=== PATIENT | female | born 1940 | race Caucasian/White ===

== ENCOUNTER → 2017-02-24 | Outpatient (CLI) | payer MEDICARE, BC ==
[~2017-02-24] MED LIST: ALBU8.5H3; FLUT1DIS22; LAS20; LEVO100T82; LOSA25TA2; TOLT4CAP; ZOLP10TA
--- NOTE | 2017-02-24 16:20 | RADRPT ---
PROCEDURE: XR Left hip and pelvis. CLINICAL INDICATION: Left hip pain and pelvic pain. TECHNIQUE: 3 views. Frontal pelvis. Frontal and lateral left hip. COMPARISON: 06/02/2013. FINDINGS: There is no fracture or dislocation. Surgical clips are present bilaterally in the pelvis. On the right side there is a total hip arthroplasty which appears satisfactory with no fracture, dis location, or loosening. There are severe degenerative changes of the left hip with joint space narrowing, osteophytes, subar ticular sclerosis, worse than seen previously. Sacroiliac joints are unremarkable. IMPRESSION: 1. Prior bilateral pelvic surgery. 2. Total right hip arthroplasty. 3. Severe degenerative changes of the left hip, slightly worse than seen previously. 4. No other new abnormality. RPTAT: QQ .Victor Manuel Hidalgo MD, MD Date Time Electronically viewed and signed by .Victor Manuel Hidalgo MD, MD on 02/24/2017 16:19 .R/
== END | disposition home or self-care (01) ==
LOC: HKI 14:44
PROVIDERS: ATTEND Orthopaedic Surgery
DX: M25.552 Pain in left hip (principal); M16.12 Unilateral primary osteoarthritis, left hip; Z96.641 Presence of right artificial hip joint
CPT/HCPCS: 73502; G0463

== ENCOUNTER → 2017-03-12 | Outpatient (CLI) | payer MEDICARE, BC | END | disposition home or self-care (01) | LOC: HKI 10:14 | PROVIDERS: ATTEND Orthopaedic Surgery | DX: Z01.818 Encounter for other preprocedural examination (principal); M16.12 Unilateral primary osteoarthritis, left hip; M25.552 Pain in left hip; Z96.641 Presence of right artificial hip joint | CPT/HCPCS: G0463 ==

== ENCOUNTER 2017-03-20 07:20 | Inpatient (IN) | payer MEDICARE, BC ==
[2017-03-12 13:46] VITALS: BMI 37.9
[2017-03-20] VITALS (55 sets, daily range): BP systolic 76–152; BP diastolic 54–92; PULSE 58–84; RESP 14–54; Ht 160 cm; Wt 100.2 kg
[~2017-03-20] VITALS: Ht 160 cm; Wt 100.2 kg
[~2017-03-20 07:20] MED LIST changes: +EPHEDrine SULFATE 50 MG/5 ML SYG ONE; +LIDOCAINE 2% (SDV) 5 ML INJ ONE; +TRANEXAMIC ACID 1,000 MG in SOD CHLORIDE 0.9% 90 ML IV ONE
[2017-03-20] MEDS ORDERED: SYN1 PO (08:03)
[2017-03-20] MEDS ORDERED: AMLO5TAB4 PO (08:04)
[2017-03-20] MEDS ORDERED: FURO-110 PO (08:04)
[2017-03-20] MEDS ORDERED: LOSA100T7 PO (08:04)
[2017-03-20] MEDS ORDERED: ZOLP5TAB PO (08:05)
[2017-03-20] MEDS ORDERED: ROCURONIUM 50 MG INJ ONE (08:53)
[2017-03-20] MEDS ORDERED: GLYCOPYRROLATE 0.4 MG INJ ONE (08:53)
[2017-03-20] MEDS ORDERED: CEFAZOLIN 1 GM INJ ONE (08:53)
[2017-03-20] MEDS ORDERED: PROPOFOL 0 ML ONE ×2 (08:53→08:55)
[2017-03-20] MEDS ORDERED: NEOSTIGMINE 3 MG/3 ML SYRINGE ONE (08:53)
[2017-03-20] MEDS ORDERED: FENTAnyl 50 MCG/ML VIAL ONE (08:54)
[2017-03-20] MEDS ORDERED: ONDANSETRON 4 MG INJ ONE (08:54)
[2017-03-20] MEDS ORDERED: DEXAMETHASONE 4 MG/ML 1 ML INJ ONE (08:54)
[2017-03-20] MEDS ORDERED: MIDAZOLAM 1 MG/ML 2 ML INJ ONE (08:54)
--- NOTE | 2017-03-20 09:58 | HPN ---
Date/Time of Note Date/Time of Note DATE: 03/20/17 TIME: 09:57 Interval H&P Admission Note Pt. seen H&P reviewed: No system changes No change from H&P on 03/06/17 by ABRAHAM Roland MD Mar 20, 2017 09:58
[2017-03-20] MEDS ORDERED: BUPIVACAINE LIPOSOME/PF 266 MG/20 ML VIAL INFIL ONE (10:00)
[2017-03-20] MEDS ORDERED: PREGABALIN 300 MG PO X1 PO ONE (10:00)
[2017-03-20] MEDS ORDERED: CELECOXIB 400 MG PO X1 DOSE PO ONE (10:00)
[2017-03-20] MEDS ORDERED: CEFAZOLIN 2GM/50 ML (PMX) 50 ML X1 BEFORE INCISION IVPB ONE (10:00)
[2017-03-20] MEDS ORDERED: EXPAREL NOTE (BUPIVICAINE LIPOSOMAL) XX SCH (10:00)
[2017-03-20] MEDS ORDERED: PAIN COCKTAIL-CEFUROXIME IRR ONE ×7 (10:00)
[2017-03-20] MEDS ORDERED: TRANEXAMIC ACID 1,000 MG in SOD CHLORIDE 0.9% 100 ML IVPB ONE ×3 (10:00→19:30)
[2017-03-20] MEDS: LACTATED RINGER'S 1,000 ML IV SCH ×4 (10:00→21:00)
[2017-03-20] MEDS ORDERED: oxyCODONE (CR) 10 MG TAB [oxyCONTIN] X1 DOSE PO ONE (10:00)
[2017-03-20] MEDS ORDERED: traMADOL 50 MG TAB X 1 DOSE PO ONE (10:00)
[2017-03-20] MEDS ORDERED: VANCOMYCIN 1 GM INJ ONE (10:18)
[2017-03-20] MEDS ORDERED: POLYMYXIN B 500000 UNIT INJ ONE (10:18)
[2017-03-20] MEDS ORDERED: ONDANSETRON 4 MG INJ IV PRN ×2 (11:30→13:30)
[2017-03-20] MEDS ORDERED: LABETALOL HCL 20MG INJ IV PRN (11:30)
[2017-03-20] MEDS ORDERED: FENTAnyl 50 MCG/ML VIAL IV PRN ×3 (11:30)
[2017-03-20] MEDS ORDERED: MIDAZOLAM 1 MG/ML 2 ML INJ IV PRN (11:30)
[2017-03-20] MEDS ORDERED: TRIMETHOBENZAMIDE 100 MG/ML VIAL IM PRN (11:30)
[2017-03-20] MEDS ORDERED: hydrALAzine 20 MG INJ IV PRN (11:30)
[2017-03-20] MEDS ORDERED: MEPERIDINE 25 MG INJ IV PRN (11:30)
[2017-03-20] MEDS ORDERED: DIPHENHYDRAMINE 50 MG INJ IV PRN (11:30)
[2017-03-20] MEDS ORDERED: HYDROmorphONE (0.2 MG/ML) 10ML SYG IV PRN ×3 (11:30)
[2017-03-20] MEDS ORDERED: EPHEDrine SULFATE 50 MG/5 ML SYG IV PRN (11:30)
[2017-03-20] MEDS ORDERED: BACITRACIN 50000 UNITS INJ IRR ONE (11:40)
[2017-03-20] MEDS: traMADol 50 MG TAB PO SCH ×3 (12:00→23:09)
--- NOTE | 2017-03-20 13:11 | OPR ---
Date/Time of Note Date/Time of Note DATE: 03/20/17 TIME: 13:10 Operative Report Free Text/Dictation Dictation # [id number] Procedure Date: Mar 20, 2017 Preoperative Diagnosis Left Hip OA Postoperative Diagnosis Same Operation Performed Left NARESH Surgeon: ABRAHAM LARA MD anesthesiology physician assistant: BRITTNI TATUM PA-C Anesthesia: general, spinal Anesthesiologist: Sanchez Manzano M.D. Estimated Blood Loss: 250 - 300 ml's Specimens Femoral Head Tubes/Drains Hemovac x 1 Complications: None Pt Condition Post Procedure: stable Disposition: PACU ABRAHAM LARA MD Mar 20, 2017 13:11
--- NOTE | 2017-03-20 13:13 | PN ---
Date/Time of Note Date/Time of Note DATE: 03/20/17 TIME: 13:12 Assessment/Plan Lines/Catheters IV Catheter Type (from Nrsg): Peripheral IV Assessment/Plan Assessment/Plan Stable in PACU, s/p left posterior NARESH -cont abx -pain meds as needed -ASA/SCDs for DVT prophylaxis -posterior hip precautions -monitor drain -check AM labs -d/c lr in AM XR of the left hip is pending at this time Subjective 24 Hr Interval Summary Stable in PACU. Denies pain. Moving all extremities. Exam/Review of Systems Vital Signs Vitals Vital Signs Date Time Temp Pulse Resp B/P Pulse Ox O2 Delivery O2 Flow Rate FiO2 03/20/17 13:08 97.7 03/20/17 09:03 81 18 124/58 98 Room Air Intake and Output 03/19/17 03/19/17 03/20/17 15:00 23:00 07:00 Intake Total 0 ml Balance 0 ml Exam Free Text/Dictation Hemovac: minimal Dressing dry Incision clean, dry, and intact without redness or drainage 5/5 Quadriceps, Tibialis Anterior, EHL, Gastroc, Soleus, Peroneals Normal sensation Palpable DT/PT, CR <2 sec No distal edema BRITTNI TATUM PA-C Mar 20, 2017 13:13
--- NOTE | 2017-03-20 13:25 | OPR ---
DATE OF OPERATION: 03/20/2017 PREOPERATIVE DIAGNOSIS: Left hip osteoarthritis. POSTOPERATIVE DIAGNOSIS: Left hip osteoarthritis. OPERATION PERFORMED: Left total hip arthroplasty. SURGEON: Abraham Rouse MD CONDITIONER TUMBLER: TORI Bonner COMPONENTS USED: DePuy size 50 mm Gription Elrama cup, 50/32 neutral AltrX polyethylene liner, size 5 high offset Menard stem, 32 + 5 ceramic head, one 6.5 screw. ANESTHESIA: Spinal plus general endotracheal intubation, plus periarticular injection. ANESTHESIOLOGIST: Sanchez Manzano MD ESTIMATED BLOOD LOSS: 300 mL. INTRAVENOUS FLUIDS: 2 liters of crystalloid. SPECIMENS: Femoral head. DRAINS: Hemovac x1. COMPLICATIONS: None. DISPOSITION: The patient tolerated procedure well and was taken to the recovery room in stable condition. INDICATIONS: The patient is a 76-year-old woman who has had progressive worsening pain in the left hip with radiographic evidence of severe osteoarthritis. She has failed nonsurgical means of treatment to control her pain including activity modifications, pain medications and ambulatory assist devices. Despite these measures, she has had worsening pain and I felt she would benefit from a total hip arthroplasty through a posterior approach. The risks, benefits, and alternatives of the procedure were explained in detail to the patient. I explained the risks of the surgery to include, but not be limited to, bleeding and possible need for blood transfusion; infections; pain; stiffness; neurovascular injury with possible numbness, weakness, and/or paralysis anywhere from the hip down to the toes; fracture, instability, or dislocation; leg length inequality; wear and/or loosening of the prosthesis and possible need for future revision; blood clots and pulmonary embolism; and anesthetic complications such as heart attack, stroke, GI bleed, pneumonia, and/ or . Ample time was allowed for the patient to ask questions, all of which were addressed and answered. The patient understood the risks involved and wished to proceed. Informed consent was signed prior to the procedure. PROCEDURE: The patient's left hip was initialed with a marking pen in the preoperative area to identify the correct operative site. The patient was brought to the [facility] where a spinal anesthesia was administered. The patient was then anesthetized and intubated. A Riddle catheter was placed. A timeout was performed to confirm that the left side was the correct operative site. The patient was given 1 g of Ancef within one hour prior to the procedure. The patient was turned to the lateral decubitus position with the operative side up. An axillary roll was placed under the chest wall. The patient was secured onto the pegboard, and all bony prominences were well padded. The operative hip and lower extremity were prepped and draped in the usual sterile fashion. A posterolateral incision was made centered over the greater trochanter and carried down through subcutaneous tissue and fat with sharp dissection. The iliotibial band and gluteus vilma muscle fibers were bluntly split. The trochanteric bursa was incised. The piriformis and conjoined tendon were identified and taken down off the posterior aspect of the greater trochanter and tagged with #2 FiberWire. The synovial fluid was normal in color and consistency. The femoral head was dislocated posteriorly. It was denuded of cartilage circumferentially. A femoral neck osteotomy was made and the femur retracted anteriorly. The remnants of the labrum and ligamentum teres were excised. I then reamed the acetabulum to the medial wall, and then went up by 2 mm increments until I got a good bite and was down to bleeding subchondral bone. The Elrama cup was opened and impacted into the acetabulum and sat flush circumferentially, getting a good bite. The trial neutral liner was placed into position. The Aufranc-Dinero guide showed the cup had about 40 to 45 degrees of abduction and 20 degrees of anteversion. Attention was then turned towards the femur. The medial overhanging greater trochanter was removed with a cookie cutter osteotome. The canal was opened, and then the lateralizing reamer was used to take away any remaining overhanging greater trochanter. I then used the tapered reamers to ream the femur, going up in size until I got a good bite. I then broached the femur, maintaining a laterally directed force and keeping the broach anteverted 20 to 25 degrees relative to the tibia pointing toward the ceiling. I increased the broaches by one-size increments until I achieved a solid bite and it sat flush with the neck cut. The trunnion and head were assembled and reduced into the acetabulum. The hip was then taken through range of motion and was quite stable. There was 110 degrees of flexion. At 90 degrees of flexion and neutral abduction, the hip was stable posteriorly to 80 degrees of internal rotation. In the position of sleep, it was stable to 85 degrees of internal rotation. The hip came to full extension, and there was no posterior impingement or instability. The [place] sign showed a combined forward flexion of 45 degrees. Leg lengths were palpated to be equal. Cross-table AP pelvis showed the components to be in good position and leg lengths and offset to be equal. At this point, the trial was dislocated and the trial broach removed. The canal was irrigated and dried. The trial liner was removed. One acetabular screw was placed. An [place] hole eliminator was placed. The real liner was opened, impacted into the acetabulum, and sat flush circumferentially. The canal was irrigated and dried. The real stem was opened, impacted into the femur, and sat flush with the neck cut. The trunnion was irrigated and dried. The real femoral head was impacted onto the trunnion and reduced into the acetabulum. The hip had the same range of motion and stability as with the trial. The posterior capsule and short external rotators were repaired back to the greater trochanter through drill holes with #2 FiberWire. The quadratus femoris was repaired back to the vastus lateralis with interrupted #1 Vicryl in a [id number]-rd-pjaft fashion. The sciatic nerve was inspected and noted to be intact, with no undue tension. The soft tissues were infiltrated with a mixture of 150 mg of 0.5% bupivacaine, 8 mg of Duramorph, 300 mcg of epinephrine , 30 mg of Toradol, 100 mcg of clonidine, 750 mg of cefuroxime and 86 mL of normal saline, followed by an injection of 266 mg of liposomal bupivacaine. A Hemovac drain was placed in the deep portion of the wound and brought out the anterolateral thigh. At this point the hip was irrigated with a mixture of Betadine/saline and then antibiotic saline with pulsatile lavage. The iliotibial band was repaired with interrupted #1 Ethibond in a gyyyzk-ik-wutfg fashion. The gluteus vilma muscle fascia was repaired with a running #1 Vicryl. The deep fat layer was irrigated and closed with 2-0 Stratafix, the subcutaneous layer closed with 3-0 Vicryl, and michael on the skin. Skin edges were sealed with Dermabond. The drain was secured with 3-0 nylon. The sponge and needle counts were correct at the end of the case. The wound was covered with an occlusive dressing. The patient was awakened, extubated, and taken to the recovery room in stable condition. An escrow assistant surgeon was necessary in the integral part of the procedure for positioning of the extremity, preparation of the patient before and after the surgical intervention. Dictated By: ABRAHAM TRINIDAD/MISSY Conf#: [id number] DID#: [id number] MTDD
[2017-03-20] MEDS ORDERED: MAGNESIUM HYDROXIDE 30ML CUP PO PRN (13:30)
[2017-03-20] MEDS ORDERED: NACL 0.9% 3 ML SYG IV SCH (13:30)
[2017-03-20] MEDS ORDERED: HYDROmorphONE 1 MG/ML SYG IV PRN (13:30)
[2017-03-20] MEDS ORDERED: DIPHENHYDRAMINE 25 MG CAP PO PRN (13:30)
[2017-03-20] MEDS ORDERED: ASPIRIN (EC) 325 MG TAB PO ONE (13:30)
[2017-03-20] MEDS ORDERED: NA PHOSPHATE/BIPHOS 133 ML ENEMA PR PRN (13:30)
[2017-03-20] MEDS ORDERED: BISACODYL 10 MG SUPP PR PRN (13:30)
[2017-03-20 13:39] LABS: HEMATOCRIT 36.2 % (37.0-47.0)
[2017-03-20] MEDS ORDERED: ALBUTEROL 18 GM INHALER INH PRN (14:00)
--- NOTE | 2017-03-20 14:03 | CONS ---
DATE OF ADMISSION: 03/20/2017 DATE OF CONSULTATION: 03/20/2017 POSTOPERATIVE MEDICAL CONSULTATION Thank you very much for allowing me to evaluate this 76-year-old female who just underwent total lef t hip arthroplasty. HISTORICAL EVENTS: As you well know, this patient has had progressive disabling pain involving the left hip, and for this elected to proceed with your recommended surgery. In recovery, she is comfor table without cough, wheezing, shortness of breath, nausea, vomiting, abdominal or chest pain. PAST MEDICAL HISTORY: Includes: 1. Asthma. 2. History of edema. 3. Hyperlipidemia. 4. Hypertension. 5. Hypothyroidism. 6. Impaired glucose tolerance. 7. 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 8. Left knee arthroscopic surgery. 9. Hysterectomy and bilateral salpingo-oophorectomy. 10. Right ankle fracture. 11. Negative thallium stress study in 2010 and undergoing cardiology preoperative evaluation by ____. MEDICATIONS PRIOR TO ADMISSION: 1. Ambien 10 mg. 2. Amlodipine 5 mg. 3. Lasix 20 mg per day. 4. Levoxyl 100 mcg per day. 5. Losartan 100 mg per day. 6. Nasonex and ProAir as needed. ALLERGIES: None. SOCIAL HISTORY: She does not smoke. FAMILY HISTORY: Positive for stomach cancer. PHYSICAL EXAMINATION: GENERAL: A comfortable appearing female in no acute distress. VITAL SIGNS: BP 120/80, pulse 70, respirations were 20. She was afebrile. EYES: Extraocular muscles were full. NOSE, MOUTH, AND THROAT: Normal. NECK: Supple. There was no jugular venous distention, thyroid enlargement or adenopathy. Carotids 2+. LUNGS: Clear. HEART: Rhythm regular. ABDOMEN: Nontender. Liver and spleen were not palpable. No tenderness. EXTREMITIES: No pitting edema. Calves nontender. NEUROLOGIC: No lateralizing motor weakness. IMPRESSION: 1. Stable postop left hip. 2. History of hypertension. With continue blood pressure meds and [facility]. 3. Hypothyroidism, to continue thyroid replacement. 4. We will evaluate her daily for signs and symptoms of thromboembolic disease despite appropriate deep vein thrombosis prophylaxis. Dictated By: DARRELL RUSS/MISSY Conf#: [id number] DID#: [id number]
[2017-03-20 14:06] LABS: CALCIUM 8.9 mg/dl (8.4-10.2); CREATININE 0.92 mg/dl (0.44-1.00); POTASSIUM 3.4 mmol/L (3.5-5.1)
[2017-03-20] MEDS ORDERED: ETOMIDATE 20 MG INJ ONE (14:17)
[2017-03-20] MEDS ORDERED: PROPOFOL 100 ML ONE (14:17)
--- NOTE | 2017-03-20 14:46 | RADRPT ---
PROCEDURE: Intraoperative imaging of the left hip with fluoroscopy. CLINICAL INDICATION: Left hip pain. Intraoperative. TECHNIQUE: Four images of the left hip were obtained in the operating room with an image intensifi er. No radiologist was in attendance. COMPARISON: Right hip radiographs dated 06/02/2013. Left hip radiographs dated 02/24/2017. FINDINGS: Images demonstrate placement of a total left hip arthroplasty. There is also a right total hip arthr oplasty which was present on 06/02/2013. IMPRESSION: 1. Intraoperative imaging of the left hip. RPTAT: QQ .Victor Manuel Hidalgo MD, MD Date Time Electronically viewed and signed by .Victor Manuel Hidalgo MD, on 03/20/2017 14:46 .R/
[2017-03-20] MEDS ORDERED: BACITRACIN 50000 UNITS INJ ONE (14:55)
--- NOTE | 2017-03-20 15:27 | RADRPT ---
PROCEDURE: XR Pelvis. CLINICAL INDICATION: Postop TECHNIQUE: Single AP view of the pelvis. COMPARISON: No prior studies are available for comparison. FINDINGS: Patient is status post total bilateral hip arthroplasty. Hardware appears intact and alignment is g rossly anatomic. The sacroiliac joints are partially visualized but within normal limits. The sacr um itself is suboptimally visualized due to overlying bowel gas. Postoperative changes including sub cutaneous gas, the drain, and skin michael are seen overlying the left hip. IMPRESSION: 1. Total bilateral hip arthroplasties with intact hardware in anatomic alignment. 2. Postoperative changes overlying the left hip. RPTAT: KK .Paramjit Smith MD, MD Date Time Electronically viewed and signed by .Paramjit Smith MD, on 03/20/2017 15:27 .B/
--- NOTE | 2017-03-20 15:28 | RADRPT ---
PROCEDURE: XR Hip. CLINICAL INDICATION: Postop TECHNIQUE: Single view of the left hip was performed. COMPARISON: None. FINDINGS: The patient is status post total left hip arthroplasty. Alignment is anatomic. There is no evidence of hardware failure or fracture. No erosions are identified. Postoperative changes including subc utaneous gas, skin michael, and a drain are in place.. IMPRESSION: 1. Total left hip arthroplasty in anatomic alignment. RPTAT: KK .Paramjit Smith MD, Date Time Electronically viewed and signed by .Paramjit Smith MD, on 03/20/2017 15:28 .B/
[2017-03-20] MEDS: PANTOPRAZOLE (EC) 40 MG TAB PO SCH (18:00)
[2017-03-20] MEDS: CEFAZOLIN 2 GM/50 ML (PMX) 50 ML IVPB SCH ×2 (19:03→20:38)
[2017-03-20] MEDS: PREGABALIN 50 MG CAP PO SCH (20:59)
[2017-03-20] MEDS: DOCUSATE SODIUM 100 MG CAP PO SCH (20:59)
[2017-03-21] MEDS: CEFAZOLIN 2 GM/50 ML (PMX) 50 ML IVPB SCH ×2 (03:10→11:43)
[2017-03-21] MEDS: LACTATED RINGER'S 1,000 ML IV SCH ×3 (03:10→21:01)
[2017-03-21 05:30] LABS: POTASSIUM 4.3 mmol/L (3.5-5.1)
[2017-03-21 05:33] LABS: CREATININE 0.85 mg/dl (0.44-1.00)
[2017-03-21 06:09] VITALS: BP 112/61; PULSE 72; RESP 18
[2017-03-21 06:14] LABS: ADD UMIC NO; URINE BILIRUBIN (Dip) NEGATIVE (NEGATIVE); URINE BLOOD (Dip) NEGATIVE (NEGATIVE); URINE COLOR LT. YELLOW (YELLOW); URINE GLUCOSE (Dip) NEGATIVE (NEGATIVE); URINE KETONES (Dip) NEGATIVE (NEGATIVE); URINE LEUKOCYTE ESTERASE (Dip) NEGATIVE (NEGATIVE); URINE NITRITE (Dip) NEGATIVE (NEGATIVE); URINE TOTAL PROTEIN (Dip) NEGATIVE (NEGATIVE); URINE UROBILINOGEN (Dip) 0.2 E.U./dL (0.1-1.0)
[2017-03-21] MEDS: traMADol 50 MG TAB PO SCH ×4 (06:29→23:32)
[2017-03-21] MEDS: LEVOTHYROXINE 100 MCG TAB PO SCH (06:29)
[2017-03-21] MEDS: PANTOPRAZOLE (EC) 40 MG TAB PO SCH ×2 (06:30→18:12)
[2017-03-21 07:00] VITALS: BP 92/54; RESP 18
[2017-03-21 08:30] VITALS: BP 119/69; RESP 18
[2017-03-21] MEDS: CELECOXIB 200 MG CAP PO SCH (08:46)
[2017-03-21] MEDS: AMLODIPINE 5 MG TAB PO SCH (08:46)
[2017-03-21] MEDS: DOCUSATE SODIUM 100 MG CAP PO SCH ×2 (08:46→20:17)
[2017-03-21] MEDS: ASPIRIN (EC) 325 MG TAB PO SCH ×2 (08:47→20:17)
[2017-03-21] MEDS: PREGABALIN 50 MG CAP PO SCH ×2 (08:47→20:17)
[2017-03-21] MEDS: HYDROCODONE/APAP (5/325) TAB PO PRN ×3 (08:47→20:16)
--- NOTE | 2017-03-21 08:50 | PN ---
Date/Time of Note Date/Time of Note DATE: 03/21/17 TIME: 08:49 Assessment/Plan Lines/Catheters IV Catheter Type (from Nrsg): Peripheral IV Riddle in Place (from Nrsg): Yes Assessment/Plan Assessment/Plan Stable POD #1, s/p left posterior NARESH -d/c abx -pain meds prn -ASA/SCDs for DVT prophylaxis -OOB with PT -continue posterior hip precautions -drain removed -check AM labs -d/c planning. Will plan to go home upon discharge Subjective 24 Hr Interval Summary No acute overnight events. Denies any significant pain. Did not start PT yesterday. VSS, afebrile. Will plan to go home upon discharge. Exam/Review of Systems Vital Signs Vitals Vital Signs Date Time Temp Pulse Resp B/P Pulse Ox O2 Delivery O2 Flow Rate FiO2 03/21/17 08:30 97.6 80 18 119/69 98 03/21/17 06:09 Nasal Cannula 2.0 Intake and Output 03/20/17 03/20/17 03/21/17 15:00 23:00 07:00 Intake Total 5100 ml 1700 ml Output Total 1020 ml 1840 ml Balance 4080 ml -140 ml Exam Free Text/Dictation Hemovac: 60cc Dressing dry Incision clean, dry, and intact without redness or drainage 5/5 Quadriceps, Tibialis Anterior, EHL, Gastroc, Soleus, Peroneals Normal sensation Palpable DT/PT, CR <2 sec No distal edema Results Result Diagram: 03/21/17 0425 03/21/17 0425 BRITTNI TATUM PA-C Mar 21, 2017 08:50
[2017-03-21] MEDS: LOSARTAN 50 MG TAB PO SCH (09:00)
[2017-03-21] MEDS ORDERED: FUROSEMIDE 20 MG TAB PO SCH (09:00)
--- NOTE | 2017-03-21 11:21 | CONS ---
Date/Time of Note Date/Time of Note DATE: 03/21/17 TIME: 11:19 Assessment/Plan Assessment/Plan Additional Assessment/Plan 1. Stable postop left hip. 2. History of hypertension, now controlled 3. Hypothyroidism,on replacement Consultation Date/Type/Reason Admit Date/Time Mar 20, 2017 at 07:20 Initial Consult Date Detailed Summary Respiratory: No shortness of breath Cardiovascular: No chest pain, No lightheadedness, No palpitations Gastrointestinal: no complaints Genitourinary: no complaints Musculoskeletal: bone/joint pain (mild left hip pain) Exam/Review of Systems Vital Signs Vitals Vital Signs Date Time Temp Pulse Resp B/P Pulse Ox O2 Delivery O2 Flow Rate FiO2 03/21/17 08:30 97.6 80 18 119/69 98 03/21/17 06:09 Nasal Cannula 2.0 Intake and Output 03/20/17 03/20/17 03/21/17 15:00 23:00 07:00 Intake Total 5100 ml 1700 ml Output Total 1020 ml 1840 ml Balance 4080 ml -140 ml Exam Neck: No jvd Respiratory: clear to auscultation Cardiovascular: regular rate and rhythm Gastrointestinal: soft Extremities: No edema (and no calf tend) Results Result Diagram: 03/21/17 0425 03/21/17 0425 Results 24 hrs Laboratory Tests Test 03/20/17 13:30 03/21/17 04:10 03/21/17 04:25 Hemoglobin 12.0 11.0 L Hematocrit 36.2 L 33.0 L Sodium Level 140 138 Potassium Level 3.4 L 4.3 Chloride Level 107 106 Carbon Dioxide Level 22 27 Anion Gap 14 9 # Blood Urea Nitrogen 13 11 Creatinine 0.92 0.85 Glucose Level 174 122 # Calcium Level 8.9 9.0 Urine Color LT. YELLOW Urine Clarity CLEAR Urine pH 5.5 Urine Specific [place] <=1.005 L Urine Ketones NEGATIVE Urine Nitrite NEGATIVE Urine Bilirubin NEGATIVE Urine Urobilinogen 0.2 E.U./dL Urine Leukocyte Esterase NEGATIVE Urine Hemoglobin NEGATIVE Urine Glucose NEGATIVE Urine Total Protein NEGATIVE Medications Medications Current Medications Amlodipine Besylate (Norvasc) 5 mg DAILY PO Last administered on 03/21/17t 08: 46; Admin Dose 5 MG; Start 03/21/17 at 09:00 Losartan Potassium 100 mg 100 mg DAILY PO ; Start 03/21/17 at 09:00 Lactated Ringer's (Lr) 1,000 ml @ 125 mls/hr Q8H IV Last administered on 03:10; Admin Dose 125 MLS/HR; Start 03/20/17 at 13:01 Celecoxib (Celebrex) 200 mg DAILY PO Last administered on 03/21/17 08:46; Admin Dose 200 MG; Start 03/21/17 at 09:00 Tramadol HCl (Ultram) 50 mg Q6 PO Last administered on 03/21/17 06:29; Admin Dose 50 MG; Start 03/20/17 at 12:00; Stop 03/23/17 at 11:59 Acetaminophen/ Hydrocodone Bitart ([place] (5/325)) 1 tab Q4H PRN PO PAIN LEVEL 1 -3 Last administered on 03/21/17 08:47; Admin Dose 1 TAB; Start 03/20/17 at 13: 30 Acetaminophen/ Hydrocodone Bitart ([place] (5/325)) 2 tab Q4H PRN PO PAIN LEVEL 4 -7; Start 03/20/17 at 13:30 Hydromorphone HCl (Dilaudid) 1 mg Q3H PRN IV PAIN LEVEL 8-10; Start 03/20/17 at 13:30 Ondansetron HCl (Zofran Inj) 4 mg Q6H PRN IV NAUSEA AND/OR VOMITING Last administered on 03/20/17 18:54; Admin Dose 4 MG; Start 03/20/17 at 13:30 Bisacodyl (Dulcolax Supp) 10 mg Q12H PRN DE CONSTIPATION; Start 03/20/17 at 13: 30 Magnesium Hydroxide (Milk Of Mag) 30 ml BID PRN PO CONSTIPATION; Start at 13:30 Sodium Biphosphate/ Sodium Phosphate (Fleet Enema) 133 ml DAILY PRN DE CONSTIPATION; Start 03/20/17 at 13:30 Docusate Sodium (Colace) 100 mg BID PO Last administered on 03/21/17 08:46; Admin Dose 100 MG; Start 03/20/17 at 21:00 Diphenhydramine HCl (Benadryl) 25 mg Q6H PRN PO PRURITUS; Start 03/20/17 at 13: 30 Aspirin (Ecotrin) 325 mg BID PO Last administered on 03/21/17 08:47; Admin Dose 325 MG; Start 03/21/17 at 09:00 Pantoprazole (Protonix Tab) 40 mg BID@06,18 PO Last administered on 03/21/17 06:30; Admin Dose 40 MG; Start 03/20/17 at 18:00 Pregabalin 50 mg 50 mg BID PO Last administered on 03/21/17 08:47; Admin Dose 50 MG; Start 03/20/17 at 21:00 Cefazolin Sodium/ Dextrose (Ancef 2 Gm/50 ml (Pmx)) 50 ml @ 100 mls/hr Q8H IVPB Last administered on 03/21/17 03:10; Admin Dose 100 MLS/HR; Start at 03:00; Stop 03/21/17 at 11:29 DARRELL WEAVER MD Mar 21, 2017 11:20
--- NOTE | 2017-03-21 13:12 | PDOCDIS ---
Discharge Instructions DIAGNOSIS Discharge Diagnosis: s/p left NARESH CONDITION Patient Condition: Good HOME CARE INSTRUCTIONS: Diet Instructions: Regular ACTIVITY: Activity Restrictions: Slowly Increase Activity Rest between Activity Avoid heavy lifting Do not operate Machinery Do not operate Power Tool Avoid Heavy Housework Keep Limb Elevated Bathing Restrictions: Shower FOLLOW UP/APPOINTMENTS Appointments follow up in the office on 03/31/17 OTHER ORDERS: Other Orders: S/P Posterior NARESH Physical Therapy: Three times per week at home x 2 weeks Daily in Rehab/SNF WB STATUS: WBAT Strengthening exercises for both upper and un-operated lower extremities. 1. Gait training with front wheeled walker 2. Wide base gait, no pivot turns. 3. Abductor strengthening. 4. Quadriceps and hamstring strengthening. 5. May switch to cane in contra lateral hand 6 weeks after surgery. 6. Physical Therapy can open case if nursing is not available. 7. Ice Packs while at rest to surgical wound for 20 minutes, 3 times/day. 8. Patient requires mobile SCDs to reduce risk of developing DVT following NARESH. Patient will use the mobile SCDs for 30 days postoperatively. Hip Precautions: no flexion beyond 90 degrees, no adduction, no internal rotation. Bathing assistance by home health aide twice weekly if Medicare patient. Occupational Therapy: Evaluation for assistive devices and ADL training. Wound Care: Keep incision dry & covered with Tegaderm until first visit with Dr. Rouse Anticoagulation Orders: Enteric Coated Aspirin 325 mg po bid x 6 weeks from date of surgery Follow-up:Call for an appointment with Dr. Rouse in 1 week after discharged from hospital at DME Orders: ERNIE, 3-in-1 Commode, Mobile SCDs BRITTNI TATUM PA-C Mar 21, 2017 13:12
[2017-03-21] MEDS ORDERED: TRAM50TA2 PO (13:13)
[2017-03-21] MEDS ORDERED: PANT40TA4 PO (13:13)
[2017-03-21] MEDS ORDERED: HYDR-3498 PO (13:13)
[2017-03-21] MEDS ORDERED: ASPI325T32 PO (13:13)
[2017-03-21 16:28] VITALS: BP 105/54; PULSE 65; RESP 16
[2017-03-21 20:34] VITALS: BP 109/53; RESP 18
[2017-03-22] MEDS: LACTATED RINGER'S 1,000 ML IV SCH ×3 (05:01→21:01)
[2017-03-22] MEDS: PANTOPRAZOLE (EC) 40 MG TAB PO SCH ×2 (05:45→17:44)
[2017-03-22] MEDS: LEVOTHYROXINE 100 MCG TAB PO SCH (05:46)
[2017-03-22] MEDS: traMADol 50 MG TAB PO SCH ×3 (05:46→17:44)
[2017-03-22 06:33] LABS: HEMATOCRIT 32.2 % (37.0-47.0); HEMOGLOBIN 10.1 g/dl (12.0-16.0)
[2017-03-22 07:00] VITALS: BP 105/55; RESP 18
[2017-03-22 07:03] LABS: POTASSIUM 3.8 mmol/L (3.5-5.1)
[2017-03-22 07:06] LABS: CREATININE 0.94 mg/dl (0.44-1.00)
[2017-03-22 07:07] LABS: CALCIUM 8.6 mg/dl (8.4-10.2)
--- NOTE | 2017-03-22 09:07 | PN ---
Date/Time of Note Date/Time of Note DATE: 03/22/17 TIME: 09:05 Assessment/Plan Lines/Catheters IV Catheter Type (from Nrsg): Peripheral IV Riddle in Place (from Nrsg): Yes Assessment/Plan Assessment/Plan Stable POD #2, s/p left posterior NARESH -pain meds as needed -ASA/SCDs -OOB with PT -posterior hip precautions -check AM labs -dressing changed -will tentatively plan to discharge home tomorrow Subjective 24 Hr Interval Summary No acute overnight events. Denies significant pain. Progressing with PT but states having difficulty with walking. VSS, afebrile. Tentative plan is to go home tomorrow. Exam/Review of Systems Vital Signs Vitals Vital Signs Date Time Temp Pulse Resp B/P Pulse Ox O2 Delivery O2 Flow Rate FiO2 03/22/17 07:00 97.9 63 18 105/55 98 03/21/17 16:28 Room Air 03/21/17 08:00 2.0 Intake and Output 03/21/17 03/21/17 03/22/17 15:00 23:00 07:00 Intake Total 900 ml 500 ml Output Total 1300 ml Balance -400 ml 500 ml Exam Free Text/Dictation Dressing dry Incision clean, dry, and intact without redness or drainage 5/5 Quadriceps, Tibialis Anterior, EHL, Gastroc, Soleus, Peroneals Normal sensation Palpable DT/PT, CR <2 sec No distal edema Results Result Diagram: 03/22/17 0449 03/22/17 0449 BRITTNI TATUM PA-C Mar 22, 2017 09:07
[2017-03-22] MEDS: CELECOXIB 200 MG CAP PO SCH (09:19)
[2017-03-22] MEDS: DOCUSATE SODIUM 100 MG CAP PO SCH ×2 (09:19→20:40)
[2017-03-22] MEDS: ASPIRIN (EC) 325 MG TAB PO SCH ×2 (09:19→20:40)
[2017-03-22] MEDS: PREGABALIN 50 MG CAP PO SCH ×2 (09:19→20:40)
[2017-03-22] MEDS: AMLODIPINE 5 MG TAB PO SCH (09:19)
[2017-03-22] MEDS: LOSARTAN 50 MG TAB PO SCH (09:20)
[2017-03-22 09:23] VITALS: BP 124/57; PULSE 58; RESP 18
--- NOTE | 2017-03-22 11:48 | CONS ---
Date/Time of Note Date/Time of Note DATE: 03/22/17 TIME: 11:47 Assessment/Plan Assessment/Plan Additional Assessment/Plan Stable post op course Hgb down trending over the past few days, but asymptomatic and VS stable. Likely post op blood loss. Monitor for 1 more day Agree with discharge home tomorrow. Consultation Date/Type/Reason Admit Date/Time Mar 20, 2017 at 07:20 Initial Consult Date 24 HR Interval Summary Free Text/Dictation Feeling well in bed. has pain with ambulation, taking norco and asking for prescription on discharge. Otherwise no complaints. Not feeling dizzy or lightheaded. Exam/Review of Systems Vital Signs Vitals Vital Signs Date Time Temp Pulse Resp B/P Pulse Ox O2 Delivery O2 Flow Rate FiO2 03/22/17 09:23 58 18 124/57 97 Room Air 03/22/17 07:00 97.9 03/21/17 08:00 2.0 Intake and Output 03/21/17 03/21/17 03/22/17 15:00 23:00 07:00 Intake Total 900 ml 500 ml Output Total 1300 ml Balance -400 ml 500 ml Exam Constitutional: alert, oriented, well developed Psych: nl mood/affect, no complaints Respiratory: clear to auscultation, normal air movement Cardiovascular: nl pulses, regular rate and rhythm Results Result Diagram: 03/22/179 03/22/179 Results 24 hrs Laboratory Tests Test 03/22/17 04:49 Hemoglobin 10.1 L Hematocrit 32.2 L Sodium Level 136 Potassium Level 3.8 Chloride Level 101 Carbon Dioxide Level 27 Anion Gap 12 Blood Urea Nitrogen 15 Creatinine 0.94 Glucose Level 99 Calcium Level 8.6 Medications Medications Current Medications Amlodipine Besylate (Norvasc) 5 mg DAILY PO Last administered on 03/22/17 09: 19; Admin Dose 5 MG; Start 03/21/17 at 09:00 Losartan Potassium 100 mg 100 mg DAILY PO Last administered on 03/22/17 09:20 ; Admin Dose 100 MG; Start 03/21/17 at 09:00 Lactated Ringer's (Lr) 1,000 ml @ 125 mls/hr Q8H IV Last administered on 03:10; Admin Dose 125 MLS/HR; Start 03/20/17 at 13:01 Celecoxib (Celebrex) 200 mg DAILY PO Last administered on 03/22/17 09:19; Admin Dose 200 MG; Start 03/21/17 at 09:00 Tramadol HCl (Ultram) 50 mg Q6 PO Last administered on 03/22/17 05:46; Admin Dose 50 MG; Start 03/20/17 at 12:00; Stop 03/23/17 at 11:59 Acetaminophen/ Hydrocodone Bitart ([place] (5/325)) 1 tab Q4H PRN PO PAIN LEVEL 1 -3 Last administered on 03/21/17 14:10; Admin Dose 1 TAB; Start 03/20/17 at 13: 30 Acetaminophen/ Hydrocodone Bitart ([place] (5/325)) 2 tab Q4H PRN PO PAIN LEVEL 4 -7 Last administered on 03/21/17 20:16; Admin Dose 2 TAB; Start 03/20/17 at 13: 30 Hydromorphone HCl (Dilaudid) 1 mg Q3H PRN IV PAIN LEVEL 8-10; Start 03/20/17 at 13:30 Ondansetron HCl (Zofran Inj) 4 mg Q6H PRN IV NAUSEA AND/OR VOMITING Last administered on 03/20/17 18:54; Admin Dose 4 MG; Start 03/20/17 at 13:30 Bisacodyl (Dulcolax Supp) 10 mg Q12H PRN [place] CONSTIPATION; Start 03/20/17 at 13: 30 Magnesium Hydroxide (Milk Of Mag) 30 ml BID PRN PO CONSTIPATION; Start at 13:30 Sodium Biphosphate/ Sodium Phosphate (Fleet Enema) 133 ml DAILY PRN [place] CONSTIPATION; Start 03/20/17 at 13:30 Docusate Sodium (Colace) 100 mg BID PO Last administered on 03/22/17 09:19; Admin Dose 100 MG; Start 03/20/17 at 21:00 Diphenhydramine HCl (Benadryl) 25 mg Q6H PRN PO PRURITUS; Start 03/20/17 at 13: 30 Aspirin (Ecotrin) 325 mg BID PO Last administered on 03/22/17 09:19; Admin Dose 325 MG; Start 03/21/17 at 09:00 Pantoprazole (Protonix Tab) 40 mg BID@18 PO Last administered on 03/22/17 05:45; Admin Dose 40 MG; Start 03/20/17 at 18:00 Pregabalin (Lyrica) 50 mg BID PO Last administered on 03/22/17 09:19; Admin Dose 50 MG; Start 03/20/17 at 21:00 BRODY GOMEZ MD Mar 22, 2017 11:48
[2017-03-22 19:30] VITALS: BP 137/64; RESP 18
[2017-03-22] MEDS: HYDROCODONE/APAP (5/325) TAB PO PRN (21:17)
[2017-03-23] MEDS: LACTATED RINGER'S 1,000 ML IV SCH ×2 (00:29→12:10)
[2017-03-23 05:59] LABS: HEMATOCRIT 33.2 % (37.0-47.0); HEMOGLOBIN 10.8 g/dl (12.0-16.0)
[2017-03-23] MEDS: PANTOPRAZOLE (EC) 40 MG TAB PO SCH (06:04)
[2017-03-23] MEDS: LEVOTHYROXINE 100 MCG TAB PO SCH (06:04)
[2017-03-23] MEDS: traMADol 50 MG TAB PO SCH ×2 (06:04)
[2017-03-23 06:17] LABS: CREATININE 0.85 mg/dl (0.44-1.00)
[2017-03-23 06:18] LABS: CALCIUM 8.6 mg/dl (8.4-10.2)
[2017-03-23 08:08] VITALS: BP 114/56; RESP 16
--- NOTE | 2017-03-23 08:21 | PN ---
Date/Time of Note Date/Time of Note DATE: 03/23/17 TIME: 08:19 Assessment/Plan Lines/Catheters IV Catheter Type (from Nrsg): Peripheral IV Riddle in Place (from Nrsg): No Assessment/Plan Assessment/Plan Stable POD #3, s/p left NARESH -pain meds as needed -ASA/SCDs -OOB with PT -posterior hip precautions -dressing changed -d/c home today -follow up in the office in 1 week Subjective 24 Hr Interval Summary No acute overnight events. Denies significant pain. Progressing with PT. Slept much better last night now that she was in a private room. VSS, afebrile. Will plan to go home today. Exam/Review of Systems Vital Signs Vitals Vital Signs Date Time Temp Pulse Resp B/P Pulse Ox O2 Delivery O2 Flow Rate FiO2 03/23/17 08:08 97.2 73 16 114/56 96 03/22/17 09:23 Room Air 03/21/17 08:00 2.0 Intake and Output 03/22/17 03/22/17 03/23/17 15:00 23:00 07:00 Intake Total 1150 ml Output Total 1100 ml Balance 50 ml Exam Free Text/Dictation Dressing dry Incision clean, dry, and intact without redness or drainage 5/5 Quadriceps, Tibialis Anterior, EHL, Gastroc, Soleus, Peroneals Normal sensation Palpable DT/PT, CR <2 sec No distal edema Results Result Diagram: 03/23/170 03/23/17 0450 BRITTNI TATUM PA-C Mar 23, 2017 08:21
[2017-03-23] MEDS: LOSARTAN 50 MG TAB PO SCH (08:35)
[2017-03-23] MEDS: AMLODIPINE 5 MG TAB PO SCH (08:36)
[2017-03-23] MEDS: DOCUSATE SODIUM 100 MG CAP PO SCH (08:37)
[2017-03-23] MEDS: CELECOXIB 200 MG CAP PO SCH (08:37)
[2017-03-23] MEDS: ASPIRIN (EC) 325 MG TAB PO SCH (08:37)
[2017-03-23] MEDS: PREGABALIN 50 MG CAP PO SCH (08:37)
[2017-03-23] MEDS: HYDROCODONE/APAP (5/325) TAB PO PRN (13:43)
--- NOTE | 2017-03-23 18:14 | DS ---
DATE OF ADMISSION: 03/20/2017 DATE OF DISCHARGE: 03/23/2017 CONDITION ON DISCHARGE: Stable. ADMITTING DIAGNOSIS: Left hip osteoarthritis. DISCHARGE DIAGNOSIS: Status post left posterior total hip arthroplasty. PROCEDURE PERFORMED: Left posterior total hip arthroplasty. HOSPITAL COURSE: This is a 76-year-old female who was seen in the clinic complaining of left hip pain. She had previously undergone a right NARESH and x- rays demonstrated advanced osteoarthritis of the left hip. It was thought that point she would benefit from a left posterior total hip arthroplasty. On 2016, the patient was admitted and taken to the operating room where she underwent a left posterior total hip arthroplasty. There were no intraoperative complications. The patient tolerated the procedure well. She was taken to the recovery room in stable condition. Pain was well controlled with oral pain medication. She was started on aspirin and SCDs for DVT prophylaxis. She remained hemodynamically stable and neurovascularly intact throughout her hospital stay. She began physical therapy on postoperative day 1 and was deemed stable for discharge on postoperative day 3. Prior to discharge, the incision was inspected and noted to be clean, dry, and intact. Dressing changes were done prior to the patient going home. LABORATORY ANALYSIS: Hemoglobin 10.8, hematocrit 32.2. Chemistry panel was within normal limits. DISCHARGE MEDICATIONS: 1. [place] 5/325 mg. 2. Tramadol 50 mg. 3. Protonix 40 mg. 4. Aspirin 325 mg. 5. Additionally, the patient should resume all her normal home medications. DISCHARGE INSTRUCTIONS: The patient will be discharged home in stable condition. She is to resume a normal diet. Her weightbearing status is as tolerated on the left lower extremity. She will begin physical therapy with home health. She will be discharged home with the medications noted above and is to resume all normal home medications. The patient is to call the office or go to the emergency room for any concerns including increased redness, swelling , drainage, fever, or any concerns regarding the operation or site of incision. FOLLOWUP: The patient will need to follow up in the office on 03/31/2017. Dictated By: BRITTNI VALLE for ABRAHAM VARGAS/NTS Conf#: [id number] DID#: [id number] CC: ABRAHAM LARA MD;*EndCC* MTDD
== END 2017-03-23 15:30 | disposition home health service (06) | DRG 470 ==
LOC: REC 07:20 → MS1 17:20
PROVIDERS: ADMIT Orthopaedic Surgery; ATTEND Orthopaedic Surgery
PROC: 0SRB04Z Replacement of Left Hip Joint with Ceramic on Polyethylene Synthetic Substitute, Open Approach (ICD-10-PCS; principal; 2017-03-20 10:00)
DX: M16.12 Unilateral primary osteoarthritis, left hip (principal); I10 Essential (primary) hypertension; E03.9 Hypothyroidism, unspecified; E78.5 Hyperlipidemia, unspecified; Z96.652 Presence of left artificial knee joint
CPT/HCPCS: 72170; 73500; 73530; 80048; 81003; 85014; 85018; 86850; 86900; 86901; 86920; 87081; 87086; 88304; 88311; 97110; 97116; 97162; 97530; C1713; C1776; C9290; J0690; J1100; J2175; J2250; J2405; J2710; J3010; J3370; J7120

== ENCOUNTER → 2017-03-31 | Outpatient (CLI) | payer MEDICARE, BC ==
[~2017-03-31] MED LIST changes: -ALBU8.5H3; +AMLO5TAB4 PO; +ASPI325T32 PO; -EPHEDrine SULFATE 50 MG/5 ML SYG ONE; -FLUT1DIS22; +FURO-110 PO; +HYDR-3498 PO; -LAS20; -LEVO100T82; -LIDOCAINE 2% (SDV) 5 ML INJ ONE; +LOSA100T7 PO; -LOSA25TA2; +PANT40TA4 PO; +SYN1 PO; -TOLT4CAP; +TRAM50TA2 PO; -TRANEXAMIC ACID 1,000 MG in SOD CHLORIDE 0.9% 90 ML IV ONE; -ZOLP10TA; +ZOLP5TAB PO
--- NOTE | 2017-03-31 17:43 | RADRPT ---
PROCEDURE: XR Left Hip and pelvis. CLINICAL INDICATION: Left hip pain. Pelvic pain. TECHNIQUE: Two views. Frontal pelvis and frontal left hip. COMPARISON: 02/24/2017. 03/20/2017. FINDINGS: There are bilateral total hip arthroplasties which appears satisfactory. There is no fracture, disl ocation, or loosening. There is no lytic or blastic lesion. Left lateral skin michael are once again noted. Left surgical drain has been removed. Surgical cli ps are present in the pelvis. There are degenerative changes of the lower lumbar spine. IMPRESSION: 1. Satisfactory postoperative appearance of both hips. RPTAT: QQ .Victor Manuel Hidalgo MD, MD Date Time Electronically viewed and signed by .Victor Manuel Hidalgo MD, MD on 03/31/2017 17:43 .R/
--- NOTE | 2017-04-01 05:32 | HKNOTE ---
DATE OF SERVICE: 03/31/2017 INTERVAL HISTORY: The patient presents today for her first postoperative evaluation. She is 10 days status post left posterior total hip arthroplasty. She is doing well overall. She is ambulating with a front-wheeled walker. She denies any significant pain. She denies any fevers or chills. She is taking aspirin twice daily for DVT prophylaxis. She is pleased with the outcome of the surgery thus far. She presents today for her first postoperative evaluation. PHYSICAL EXAMINATION: GENERAL: On exam today, she is alert and oriented x4 and in no acute distress. She is ambulating with a front-wheel walker. EXTREMITIES: Exam of the incision demonstrates it to be clean, dry, and intact. Flomot are in place. She has no pain with passive range of motion of the left hip. There is no significant ecchymosis or soft tissue swelling noted. Homans sign is negative. Compartments are soft. She is neurovascularly intact distally. IMAGING: X-rays of the left hip were obtained today and reviewed by me. They demonstrate good anatomic alignment with no fractures or dislocations identified. ASSESSMENT: 10 days status post left posterior total hip arthroplasty, doing well. PLAN: The michael were removed today, and Steri-Strips were applied. She is to continue aspirin 325 mg twice daily for DVT prophylaxis. Additionally, she should continue with posterior hip precautions. She will continue physical therapy at home and may transition to outpatient physical therapy program. Additionally, she is to continue the pain medicine as needed. We will see her back in 4 weeks for repeat evaluation. She is to call the office in the meantime if she has any concerns. Dictated By: BRITTNI VALLE for ABRAHAM VARGAS/MISSY Conf#: [id number] DID#: [id number] MTDD
== END | disposition home or self-care (01) ==
LOC: HKI 10:28
PROVIDERS: ATTEND Orthopaedic Surgery
DX: Z47.1 Aftercare following joint replacement surgery (principal); Z96.642 Presence of left artificial hip joint
CPT/HCPCS: 73502

== ENCOUNTER → 2017-06-11 | Outpatient (CLI) | payer MEDICARE, BC ==
--- NOTE | 2017-06-11 15:12 | RADRPT ---
PROCEDURE: XR Left hip and pelvis. CLINICAL INDICATION: Left hip pain and pelvic pain. TECHNIQUE: 3 views. Frontal pelvis. Frontal and lateral left hip. COMPARISON: 03/31/2017. FINDINGS: There are bilateral total hip arthroplasties. This appears satisfactory with no fracture, dislocati on, or loosening. There is no lytic lesion. Surgical clips are present bilaterally in the pelvis. IMPRESSION: 1. Satisfactory postoperative appearance of both hips. RPTAT: QQ .Victor Manuel Hidalgo MD, MD Date Time Electronically viewed and signed by .Victor Manuel Hidalgo MD, MD on 06/11/2017 15:12 .R/
== END | disposition home or self-care (01) ==
LOC: HKI 09:33
PROVIDERS: ATTEND Orthopaedic Surgery
DX: Z47.1 Aftercare following joint replacement surgery (principal); M16.12 Unilateral primary osteoarthritis, left hip; Z96.642 Presence of left artificial hip joint
CPT/HCPCS: 73502; G0463